=== PATIENT | male | born 1940 | race Two or more races ===

== ENCOUNTER → 2017-08-12 | Outpatient (CLI) | payer OTHER ==
[~2017-08-12] MED LIST: ALLO300T2 PO; SIMV-8 PO
[2017-08-12 10:39] LABS: Basophils # (auto) 0.1 uL; Basophils % (auto) 0.7 % (0.0-2.0); Eosinophils # (auto) 0.1 uL; Eosinophils % (auto) 1.7 % (0.0-7.0); Hematocrit 51.3 % (41.0-53.0); Hemoglobin 17.6 g/dL (13.5-17.5); Lymphocytes # (auto) 2.5 uL; Lymphocytes % (auto) 32.7 % (10.0-50.0); Mean Corpuscular Hemoglobin 32.3 pg (28.0-32.0); Mean Corpuscular Hgb Conc. 34.4 g/dL (32.0-36.0); Mean Corpuscular Volume 93.9 fL (80.0-100.0); Monocytes # (auto) 0.5 uL; Neutrophils # (auto) 4.5 uL; Neutrophils % (auto) 57.9 % (37.0-80.0); Nucleated Red Blood Cells % 0.2 %; Platelet Count (auto) 266 10^3/uL (140-450); Red Blood Cells 5.46 10^6/uL (4.5-5.90); Red Cell Distribution Width 13.2 % (11.8-14.3); White Blood Cell 7.8 10^3/uL (4.4-10.8)
[2017-08-12 10:52] LABS: Urine Bacteria NONE SEEN /hpf (None Seen); Urine Blood Negative /uL (Negative); Urine Mucus FEW (None Seen); Urine Specific Gravity 1.012 (1.001-1.035); Urine WBC 1 /hpf (0 - 3)
[2017-08-12 11:59] LABS: Albumin 3.6 g/dL (3.4-5.0); BUN/Creatinine Ratio 10.7; Bilirubin, Total 1.1 mg/dL (0.2-1.0); Calcium 8.6 mg/dL (8.5-10.1); Potassium 3.8 mmol/L (3.5-5.1); Total Protein 7.4 g/dL (6.4-8.2); Uric Acid 8.2 mg/dL (3.5-7.2)
== END | disposition home or self-care (01) ==
LOC: LAB 10:19
PROVIDERS: ATTEND Family Medicine
DX: M10.9 Gout, unspecified (principal); E78.5 Hyperlipidemia, unspecified
CPT/HCPCS: 36415; 80053; 80061; 81001; 82306; 82607; 83036; 84443; 84550; 85025

== ENCOUNTER → 2018-03-12 | Outpatient (CLI) | payer OTHER ==
[2018-03-12 08:47] LABS: Albumin 3.5 g/dL (3.4-5.0); BUN/Creatinine Ratio 13.4; Bilirubin, Total 0.9 mg/dL (0.2-1.0); Calcium 8.5 mg/dL (8.5-10.1); Potassium 3.8 mmol/L (3.5-5.1); Total Protein 7.3 g/dL (6.4-8.2)
== END | disposition home or self-care (01) ==
LOC: LAB 07:43
PROVIDERS: ATTEND Family Medicine
DX: M10.9 Gout, unspecified (principal); E03.9 Hypothyroidism, unspecified; E78.5 Hyperlipidemia, unspecified
CPT/HCPCS: 36415; 80053; 80061; 84443; 84550

== ENCOUNTER 2018-10-21 09:00 | Inpatient (IN) | payer OTHER ==
[~2018-10-21] VITALS: Ht 182.9 cm; Wt 92.8 kg
[2018-10-21] MEDS ORDERED: ADENOSINE 6 MG/2 ML INJ IV ONE ×2 (09:26→09:30)
[2018-10-21] MEDS ORDERED: AMIODARONE HCL 900 MG in DEXTROSE 500 ML IV SCH ×3 (09:41→16:04)
[2018-10-21] MEDS ORDERED: AMIODARONE HCL 150 MG in D5W 5% 100 ML IV ONE (09:45)
[2018-10-21 09:46] LABS: Basophils # (auto) 0.1 uL; Basophils % (auto) 0.7 % (0.0-2.0); Eosinophils # (auto) 0.2 uL; Eosinophils % (auto) 1.8 % (0.0-7.0); Hematocrit 48.8 % (41.0-53.0); Hemoglobin 16.4 g/dL (13.5-17.5); Lymphocytes # (auto) 2.5 uL; Mean Corpuscular Hemoglobin 32.4 pg (28.0-32.0); Mean Corpuscular Hgb Conc. 33.5 g/dL (32.0-36.0); Mean Corpuscular Volume 96.6 fL (80.0-100.0); Monocytes # (auto) 0.7 uL; Monocytes % (auto) 7.9 % (0.0-12.0); Neutrophils % (auto) 63.6 % (37.0-80.0); Nucleated Red Blood Cells % 0.1 %; Platelet Count (auto) 217 10^3/uL (140-450); Red Blood Cells 5.06 10^6/uL (4.5-5.90); Red Cell Distribution Width 13.6 % (11.8-14.3); White Blood Cell 9.4 10^3/uL (4.4-10.8)
[2018-10-21] MEDS ORDERED: SODIUM CHLORIDE 0.9% 1,000 ML IV ONE ×2 (09:46)
[2018-10-21 09:52] LABS: INR 1.02 (0.9-1.15); Partial Thromboplastin Time 27.1 sec (23.78-33.04); Prothrombin Time 10.9 sec (9.27-12.13)
[2018-10-21 09:56] LABS: Albumin 3.7 g/dL (3.4-5.0); Calcium 8.3 mg/dL (8.5-10.1); Magnesium 2.3 mg/dL (1.6-2.6); Potassium 4.1 mmol/L (3.5-5.1)
[2018-10-21] MEDS ORDERED: ASPirin 81 mg TAB PO ONE (10:00)
[2018-10-21 10:02] LABS: BUN/Creatinine Ratio 17.4; Bilirubin, Total 0.8 mg/dL (0.2-1.0); Total Protein 7.1 g/dL (6.4-8.2)
[2018-10-21] MEDS ORDERED: IOHEXOL 350 MG/ML 100ML IJ ONE ×2 (11:20→12:38)
[2018-10-21] MEDS ORDERED: NITROGLYCERIN 0.4 MG SL TAB SL PRN (11:45)
[2018-10-21] MEDS ORDERED: MORPHINE SULF INJ 2 MG/ML SYRINGE 1ML IV PRN ×2 (11:45)
[2018-10-21] MEDS ORDERED: ACETAMINOPHEN 500 MG TAB PO PRN (11:45)
[2018-10-21] MEDS ORDERED: ONDANSETRON HCL 4 MG/2 ML VIAL IV PRN (11:45)
[2018-10-21] MEDS ORDERED: HYDROcodone-ACET 5/325MG TAB PO PRN (11:45)
[2018-10-21] MEDS ORDERED: METOPROLOL TARTRATE 25 MG TAB PO ONE ×2 (12:30→14:00)
[2018-10-21] MEDS ORDERED: DIGOXIN (250MCG/ML) 2 ML AMPULE IV ONE (16:15)
[2018-10-21 16:42] LABS: Urine Bacteria NONE SEEN /hpf (None Seen); Urine Blood Negative /uL (Negative); Urine Specific Gravity 1.035 (1.001-1.035); Urine WBC 6 /hpf (0 - 3)
[2018-10-21] MEDS ORDERED: ENOXAPARIN SOD 80 MG/0.8ML SYRINGE SC SCH (22:00)
[2018-10-21] MEDS ORDERED: METOPROLOL TARTRATE 25 MG TAB PO SCH (22:00)
[2018-10-21] MEDS: ATORVASTATIN 20 MG TAB PO SCH (22:37)
[2018-10-22 06:33] LABS: Basophils # (auto) 0 uL; Basophils % (auto) 0.3 % (0.0-2.0); Eosinophils # (auto) 0.1 uL; Eosinophils % (auto) 0.7 % (0.0-7.0); Hematocrit 45.5 % (41.0-53.0); Hemoglobin 15.5 g/dL (13.5-17.5); Lymphocytes % (auto) 21.3 % (10.0-50.0); Mean Corpuscular Hemoglobin 32.9 pg (28.0-32.0); Mean Corpuscular Hgb Conc. 34.1 g/dL (32.0-36.0); Mean Corpuscular Volume 96.5 fL (80.0-100.0); Monocytes # (auto) 0.8 uL; Neutrophils # (auto) 6.5 uL; Neutrophils % (auto) 69.7 % (37.0-80.0); Nucleated Red Blood Cells % 0.1 %; Platelet Count (auto) 186 10^3/uL (140-450); Red Blood Cells 4.71 10^6/uL (4.5-5.90); Red Cell Distribution Width 13.3 % (11.8-14.3); White Blood Cell 9.4 10^3/uL (4.4-10.8)
[2018-10-22 06:41] LABS: BUN/Creatinine Ratio 17.3; Calcium 8.2 mg/dL (8.5-10.1); Potassium 4.4 mmol/L (3.5-5.1)
[2018-10-22 07:04] LABS: INR 1.06 (0.9-1.15); Partial Thromboplastin Time 29.8 sec (23.78-33.04); Prothrombin Time 11.3 sec (9.27-12.13)
[2018-10-22] MEDS ORDERED: METOPROLOL TARTRATE 25 MG TAB PO SCH (10:00)
[2018-10-22] MEDS ORDERED: FUROSEMIDE 20 MG TAB PO SCH (10:00)
[2018-10-22] MEDS: ENALAPRIL MALEATE 2.5 MG TAB PO SCH (10:27)
[2018-10-22] MEDS: PANTOPRAZOLE 40 MG/10 ML VIAL INJ IV SCH (10:27)
[2018-10-22] MEDS: DIGOXIN (250MCG/ML) 2 ML AMPULE IV SCH (10:27)
[2018-10-22] MEDS: ASPirin-EC 81 mg tab PO SCH (10:27)
[2018-10-22] MEDS: CARVEDILOL 3.125 MG TAB PO SCH ×2 (10:27→21:45)
[2018-10-22 11:15] VITALS: BP 138/76
[2018-10-22] MEDS ORDERED: ASPI325T4 PO (13:23)
[2018-10-22] MEDS ORDERED: cefTRIAXone 1GM/50ML D5W 50 ML IV ONE (14:30)
[2018-10-22] MEDS ORDERED: AZITHROMYCIN 500MG/ 250ML 250 ML IV ONE (14:30)
[2018-10-22] MEDS ORDERED: FUROSEMIDE 20 MG/2 ML VIAL IV ONE (14:30)
[2018-10-22] MEDS ORDERED: IPRATROPIUM BROM 0.5 MG/2.5ML INH SOL NEB PRN (14:30)
[2018-10-22] MEDS ORDERED: guaiFENesin-DM 100/10mg/5ml SYR PO PRN (14:30)
[2018-10-22] MEDS ORDERED: ALBUTEROL SULF 2.5 MG/0.5ML(0.5%) NEB SOLN NEB PRN (14:30)
[2018-10-22 16:25] VITALS: BP 120/72
--- NOTE | 2018-10-22 19:00 | NUR ---
Opening Shift Note Assumed care of patient, awake and alert. No S/S of distress/SOB or pain. Instructed on POC and to call for assist PRN, will continue to monitor for changes Q1hr and PRN.
--- NOTE | 2018-10-22 20:28 | NUR ---
Respiratory note: ASSESSMENT FOR PRN MED NEB TX, NO RESPIRATORY DISTRESS NOTED. HR 80, SPO2 97% ON 4L NC, RR 18, BS CLEAR. PT PRESENTING NO RESPIRATORY DISTRESS AT THIS TIME. WILL CONTINUE TO MONITOR.
--- NOTE | 2018-10-22 20:35 | NUR ---
IV removal IV to right hand was noted to be infiltrated upon assessment.IV was DC'd with sterile technique, catheter fully intact. Pressure dressing applied to site. Patient tolerated procedure well.
[2018-10-22] MEDS: ATORVASTATIN 20 MG TAB PO SCH (21:45)
[2018-10-22 22:00] VITALS: BP 130/73
[2018-10-23 00:57] VITALS: BP 122/69
[2018-10-23 04:54] VITALS: BP 139/74
[2018-10-23 06:16] LABS: Basophils # (auto) 0 uL; Basophils % (auto) 0.4 % (0.0-2.0); Eosinophils # (auto) 0.1 uL; Hematocrit 43.6 % (41.0-53.0); Hemoglobin 14.7 g/dL (13.5-17.5); Lymphocytes # (auto) 1.6 uL; Lymphocytes % (auto) 18.5 % (10.0-50.0); Mean Corpuscular Hemoglobin 32.6 pg (28.0-32.0); Mean Corpuscular Hgb Conc. 33.8 g/dL (32.0-36.0); Mean Corpuscular Volume 96.5 fL (80.0-100.0); Monocytes # (auto) 0.7 uL; Neutrophils # (auto) 6.1 uL; Neutrophils % (auto) 72.1 % (37.0-80.0); Nucleated Red Blood Cells % 0.1 %; Platelet Count (auto) 171 10^3/uL (140-450); Red Blood Cells 4.52 10^6/uL (4.5-5.90); Red Cell Distribution Width 13.1 % (11.8-14.3); White Blood Cell 8.5 10^3/uL (4.4-10.8)
[2018-10-23 06:36] LABS: Albumin 3.3 g/dL (3.4-5.0); Calcium 8.2 mg/dL (8.5-10.1); Magnesium 2.2 mg/dL (1.6-2.6)
[2018-10-23 06:42] LABS: BUN/Creatinine Ratio 20.4; Bilirubin, Total 0.8 mg/dL (0.2-1.0); Total Protein 6.3 g/dL (6.4-8.2)
--- NOTE | 2018-10-23 07:05 | NUR ---
Respiratory note: ROUTINE PRN MN TX CHECK. HR 74, RR 18, POX 98% ON 2L/M NASAL CANNULA, BREATH SOUNDS ARE CLEAR/DIMINISHED. NO SOB OR DISTRESS NOTED. PT WAS NOTIFY TO HAVE RT PAGE FOR MN TX.
--- NOTE | 2018-10-23 07:28 | NUR ---
PATIENT SLEEPING, EFFORTLESS BREATHING NOTED ON ROOM AIR. EASILY AROUSABLE UPON VERBAL INTERACTION. IV PRESENT TO LEFT HAND #20. BED IN LOWEST POSITION, CALL LIGHT WITHIN REACH. WILL CONTINUE TO MONITOR.
[2018-10-23 08:11] VITALS: BP 126/76
[2018-10-23] MEDS: cefTRIAXone 1GM/50ML D5W 50 ML IV SCH (09:41)
[2018-10-23] MEDS: DIGOXIN (250MCG/ML) 2 ML AMPULE IV SCH (09:49)
[2018-10-23] MEDS: ASPirin-EC 81 mg tab PO SCH (09:51)
[2018-10-23] MEDS: ENALAPRIL MALEATE 2.5 MG TAB PO SCH (09:51)
[2018-10-23] MEDS: FUROSEMIDE 40 MG/4 ML VIAL IV SCH (09:52)
[2018-10-23] MEDS: ENOXAPARIN SOD 40 MG/0.4 ML SYRINGE SC SCH (09:52)
[2018-10-23] MEDS: PANTOPRAZOLE 40 MG/10 ML VIAL INJ IV SCH (09:52)
[2018-10-23] MEDS: CARVEDILOL 3.125 MG TAB PO SCH ×2 (09:52→21:47)
[2018-10-23] MEDS: AZITHROMYCIN 500MG/ 250ML 250 ML IV SCH (10:20)
--- NOTE | 2018-10-23 10:50 | NUR ---
COMMUNICATED TO DR. MENA ABOUT THE ELEVATED TROPONIN LAB: 0.051 MD STATED WILL CALL DR. BURLESON FOR FURTHER PLAN.
[2018-10-23 11:47] VITALS: BP 132/64
--- NOTE | 2018-10-23 12:50 | NUR ---
PATIENT TOLERATING LUNCH DIET WELL. DENIES ANY DISCOMFORT AT MOMENT. CALL LIGHT WITHIN REACH.
[2018-10-23 16:19] VITALS: BP 123/69
[2018-10-23] MEDS: ATORVASTATIN 20 MG TAB PO SCH (21:47)
[2018-10-23 22:00] VITALS: BP 141/80
[2018-10-24 05:00] VITALS: BP 129/72
[2018-10-24 06:15] LABS: Potassium 4.1 mmol/L (3.5-5.1)
[2018-10-24 06:24] LABS: BUN/Creatinine Ratio 20.5; Calcium 8.2 mg/dL (8.5-10.1)
--- NOTE | 2018-10-24 07:12 | NUR ---
PATIENT SLEEPING AT MOMENT. NO S/S OF DISTRESS AT MOMENT. EFFORTLESS BREATHING ON 2LPM NASAL CANULA. BED IN LOWEST POSITION, WHEELS LOCKED, CALL LIGHT WITHIN REACH.
--- NOTE | 2018-10-24 07:20 | NUR ---
CLOSING NOTE Care has been endorsed to day shift nurse.
[2018-10-24 08:00] VITALS: BP 134/79
--- NOTE | 2018-10-24 08:44 | NUR ---
PT REPORTS THAT HE WALKS FINE AND DOES NOT NEED P.T.
[2018-10-24] MEDS: cefTRIAXone 1GM/50ML D5W 50 ML IV SCH (09:08)
[2018-10-24] MEDS: DIGOXIN (250MCG/ML) 2 ML AMPULE IV SCH (09:12)
[2018-10-24] MEDS: FUROSEMIDE 40 MG/4 ML VIAL IV SCH (09:13)
[2018-10-24] MEDS: ASPirin-EC 81 mg tab PO SCH (09:13)
[2018-10-24] MEDS: CARVEDILOL 3.125 MG TAB PO SCH ×2 (09:13→21:37)
[2018-10-24] MEDS: PANTOPRAZOLE 40 MG/10 ML VIAL INJ IV SCH (09:13)
[2018-10-24] MEDS: ENALAPRIL MALEATE 2.5 MG TAB PO SCH (09:14)
[2018-10-24] MEDS: ENOXAPARIN SOD 40 MG/0.4 ML SYRINGE SC SCH (09:14)
[2018-10-24] MEDS: AZITHROMYCIN 500MG/ 250ML 250 ML IV SCH (10:18)
--- NOTE | 2018-10-24 10:30 | NUR ---
URINE OUTPUT OF 1000ML. PT REPORTS COMFORT, EFFORTLESS BREATHING ON ROOM AIR. CALL LIGHT WITHIN REACH.
--- NOTE | 2018-10-24 11:05 | NUR ---
Respiratory note: ASSESSED PATIENT FOR PRN BREATHING TX, PATIENT WAS AWAKE AND ALERT. NO RESPIRATORY DISTRESS OR SHORTNESS OF BREATH NOTED AT THIS TIME. PATIENT WAS ON ROOM AIR SPO2 93%, HR 75, RR 17. PATIENT IS AWARE TO HAVE RT PAGED IF BREATHING TX IS NEEDED. WILL CONTINUE TO MONITOR PATIENT.
--- NOTE | 2018-10-24 11:41 | NUR ---
Nutrition Assessment Notes please see attached link for complete assessment Est. Needs BW [id number] kcal (23-25 kcal/kgBW), 95-104 gms pro (1.0-1.1 gms/kgBW). Will continue to monitor pertinent labs and reassess nutrient need prn. Addendum: 10/24/18 at [address] Amended: Links added.
[2018-10-24 11:52] VITALS: BP 108/63
--- NOTE | 2018-10-24 12:06 | NUR ---
Respiratory note: ASSESSED PATIENT FOR PRN TX. PATIENT ASKED IF SHE COULD HAVE ONE. PATIENT RECEIVED BREATHING TX W/O ANY ADVERSE REACTIONS. HR 86, RR 18, SPO2 95% ON ROOM AIR. PATIENT IS AWARE TO HAVE RT PAGED IF BREATHING TX IS NEEDED. WILL CONTINUE TO MONITOR PATIENT. Addendum: 10/24/18 at 1558 by JARRETT ABRAHAM, RT RT ERROR/ INCORRECT PATIENT CARE PROVIDER MISTAKE.
--- NOTE | 2018-10-24 13:11 | NUR ---
URINE OUTPUT OF 900ML. PATIENT TOLERATING DIET WELL. DENIES ANY DISCOMFORT AT MOMENT. EFFORTLESS BREATHING ON ROOM AIR. CALL LIGHT WITHIN REACH.
[2018-10-24 15:59] VITALS: BP 129/81
--- NOTE | 2018-10-24 16:35 | NUR ---
DR. NIEVES AT BEDSIDE, DISCUSSING PLAN OF CARE WITH PATIENT.
--- NOTE | 2018-10-24 19:30 | NUR ---
Opening Shift Note Assumed care of patient, awake and alert. The patient is sitting up in bed eating his dinner. No S/S of distress/SOB or pain. Instructed on POC and to call for assist PRN, will continue to monitor for changes Q1hr and PRN.
--- NOTE | 2018-10-24 20:21 | NUR ---
Respiratory note: ASSESSED PT FOR PRN MED NEB AT THIS TIME, PT DENIES SOB AT THIS TIME, NO RESP DISTRESS NOTED, NO TX INDICATED, PULSE OX 95% ON RA, HR 88, RR 20, BILATERAL BS CLEAR.
[2018-10-24] MEDS: ATORVASTATIN 20 MG TAB PO SCH (21:38)
[2018-10-24 22:00] VITALS: BP 131/74
[2018-10-25 05:00] VITALS: BP 150/80
--- NOTE | 2018-10-25 07:07 | NUR ---
Closing shift note Care has been endorsed to the day shift RN.
--- NOTE | 2018-10-25 07:15 | NUR ---
Opening Shift Note Received report from night nurse. Assumed care of patient, awake and alert. No S/S of distress/SOB or pain. For C stephan and patient is aware of it. Instructed on POC and to call for assist PRN, will continue to monitor for changes Q1hr and PRN.
[2018-10-25 08:00] VITALS: BP 149/84
[2018-10-25 09:00] VITALS: BP 149/84
[2018-10-25] MEDS: cefTRIAXone 1GM/50ML D5W 50 ML IV SCH (09:39)
[2018-10-25] MEDS: ASPirin-EC 81 mg tab PO SCH (09:40)
[2018-10-25] MEDS: ENALAPRIL MALEATE 2.5 MG TAB PO SCH (09:40)
[2018-10-25] MEDS: ENOXAPARIN SOD 40 MG/0.4 ML SYRINGE SC SCH (09:40)
[2018-10-25] MEDS: FUROSEMIDE 40 MG/4 ML VIAL IV SCH (09:40)
[2018-10-25] MEDS: PANTOPRAZOLE 40 MG/10 ML VIAL INJ IV SCH (09:40)
[2018-10-25] MEDS: CARVEDILOL 3.125 MG TAB PO SCH ×2 (09:41→22:00)
[2018-10-25] MEDS: DIGOXIN (250MCG/ML) 2 ML AMPULE IV SCH (09:42)
--- NOTE | 2018-10-25 10:40 | NUR ---
Respiratory note: ASSESSED PT FOR PRN TX, PT WAS ASLEEP, NO RESP DISTRESS NOTED. HR 74, RR 18, SPO2 93% ON ROOM AIR. BS ARE CLEAR AND DIMINISHED.
[2018-10-25] MEDS: AZITHROMYCIN 500MG/ 250ML 250 ML IV SCH (10:47)
[2018-10-25 13:00] VITALS: BP 116/68
[2018-10-25] MEDS ORDERED: PNEUMOCOCCAL VACC POLYS 25 MCG/0.5 ML VIAL IM ONE (14:30)
[2018-10-25] MEDS ORDERED: INFLUENZA QUAD 2018-2019 0.5 ML SYRG IM ONE (14:30)
[2018-10-25 17:00] VITALS: BP 132/75
[2018-10-25 22:00] VITALS: BP 136/73
[2018-10-25] MEDS: ATORVASTATIN 20 MG TAB PO SCH (22:00)
[2018-10-26] VITALS (7 sets, daily range): BP systolic 124–148; BP diastolic 61–88
--- NOTE | 2018-10-26 01:02 | NUR ---
PT SEEN SLEEPING IN BED ON RA, NO RESP DISTRESS NOTED, BS CLEAR AND DIMINISHED, RR 16. PRN NEB TX NOT INDICATED AT THIS TIME.
[2018-10-26 05:37] LABS: Basophils # (auto) 0 uL; Basophils % (auto) 0.5 % (0.0-2.0); Eosinophils # (auto) 0.2 uL; Eosinophils % (auto) 2.5 % (0.0-7.0); Hematocrit 47.6 % (41.0-53.0); Hemoglobin 16.6 g/dL (13.5-17.5); Lymphocytes # (auto) 1.8 uL; Lymphocytes % (auto) 18.9 % (10.0-50.0); Mean Corpuscular Hemoglobin 32.9 pg (28.0-32.0); Mean Corpuscular Hgb Conc. 34.8 g/dL (32.0-36.0); Mean Corpuscular Volume 94.5 fL (80.0-100.0); Monocytes % (auto) 10.2 % (0.0-12.0); Neutrophils # (auto) 6.5 uL; Neutrophils % (auto) 67.9 % (37.0-80.0); Nucleated Red Blood Cells % 0.2 %; Platelet Count (auto) 228 10^3/uL (140-450); Red Blood Cells 5.04 10^6/uL (4.5-5.90); Red Cell Distribution Width 13.1 % (11.8-14.3); White Blood Cell 9.5 10^3/uL (4.4-10.8)
[2018-10-26 05:50] LABS: INR 0.99 (0.9-1.15); Prothrombin Time 10.6 sec (9.27-12.13)
--- NOTE | 2018-10-26 07:15 | NUR ---
CLOSING SHIFT NOTE The patient is currently stable. Will endorse care to day shift RN.
--- NOTE | 2018-10-26 07:45 | NUR ---
Opening Shift Note Assumed care of patient, patient sleeping. No S/S of distress/SOB or pain. Will continue to monitor for changes Q1hr and PRN. Bed in lowest locked position, call light within reach.
[2018-10-26] MEDS: ENOXAPARIN SOD 40 MG/0.4 ML SYRINGE SC SCH (09:33)
[2018-10-26] MEDS: ASPirin-EC 81 mg tab PO SCH (09:33)
[2018-10-26] MEDS: AZITHROMYCIN 500MG/ 250ML 250 ML IV SCH (09:34)
[2018-10-26] MEDS: cefTRIAXone 1GM/50ML D5W 50 ML IV SCH (09:34)
[2018-10-26] MEDS: ENALAPRIL MALEATE 2.5 MG TAB PO SCH (09:35)
[2018-10-26] MEDS: DIGOXIN (250MCG/ML) 2 ML AMPULE IV SCH (09:35)
[2018-10-26] MEDS: PANTOPRAZOLE 40 MG/10 ML VIAL INJ IV SCH (09:35)
[2018-10-26] MEDS: FUROSEMIDE 40 MG/4 ML VIAL IV SCH (09:35)
[2018-10-26] MEDS: CARVEDILOL 3.125 MG TAB PO SCH ×2 (09:36→21:30)
--- NOTE | 2018-10-26 12:21 | NUR ---
OFF UNIT PATIENT TRANSFERRED TO [facility] [employer] VIA BED. NO S/S OF DISTRESS NOTED AT TIME OF DEPARTURE.
[2018-10-26] MEDS ORDERED: MORPHINE SULF INJ 2 MG/ML SYRINGE 1ML IV PRN (12:45)
[2018-10-26] MEDS ORDERED: HYDROcodone-ACET 5/325MG TAB PO PRN (12:45)
[2018-10-26] MEDS ORDERED: LIDOCAINE 2%HCL (LOCAL ANESTH.) INJ 20ML MDV ONE (13:06)
[2018-10-26] MEDS ORDERED: IOHEXOL 350 MG/ML 100ML IJ ONE (13:44)
[2018-10-26] MEDS ORDERED: fentaNYL CITRATE 100 MCG/2 ML VL ONE (13:46)
[2018-10-26] MEDS ORDERED: MIDAZOLAM HCL 1MG/1ML-2 ML VIAL ONE (13:46)
[2018-10-26] MEDS ORDERED: ANGIOMAX 250 MG VIAL IV ONE (13:46)
[2018-10-26] MEDS ORDERED: SODIUM CHL 0.9% 0 ML ONE (13:46)
[2018-10-26] MEDS ORDERED: IODIXANOL 320MG/ML 100ML BTL IV ONE (13:50)
--- NOTE | 2018-10-26 15:00 | NUR ---
ON UNIT PATIENT TRANSFERRED BACK TO UNIT VIA BED. NO S/S OF DISTRESS NOTED AT TIME OF ARRIVAL. RIGHT GROIN DRESSING CDI, NO S/S OF BLEEDING. RIGHT PEDAL PULSES PALPABLE. WILL CONTINUE TO MONITOR.
--- NOTE | 2018-10-26 18:42 | NUR ---
END OF SHIFT PATIENT RESTING IN BED. NO S/S OF DISTRESS. INSTRUCTED PATIENT TO CALL PRN. BED IN LOWEST LOCKED POSITION, CALL LIGHT WITHIN REACH. ENDORSED CARE TO ALYX CALLAHAN.
--- NOTE | 2018-10-26 19:35 | NUR ---
OPENING SHIFT NOTE RECEIVED REPORT FROM DAYSHIFT RN. PATIENT SITTING ON SIDE OF BED EATING A SANDWICH. NO S/S OF DISTRESS OR SOB. NO PAIN NOTED OR REPORTED. PATIENT A/O X4, AMBULATORY. DRESSING TO RIGHT GROIN IS CLEAN, DRY, AND INTACT. NO S/S OF BLEEDING OR HEMATOMA. UPDATED PATIENT ON POC, VERBALIZED UNDERSTANDING. BED LOCKED IN LOW POSITION, CALL LIGHT WITHIN REACH. WILL CONTINUE TO MONITOR PATIENT Q1HR AND PRN.
[2018-10-26] MEDS: ATORVASTATIN 20 MG TAB PO SCH (21:29)
[2018-10-27 04:42] VITALS: BP 117/65
[2018-10-27 07:37] LABS: Calcium 8.8 mg/dL (8.5-10.1); Magnesium 2.5 mg/dL (1.6-2.6)
[2018-10-27 07:41] LABS: BUN/Creatinine Ratio 24.8
[2018-10-27] MEDS: cefTRIAXone 1GM/50ML D5W 50 ML IV SCH (08:44)
[2018-10-27 09:00] VITALS: BP 100/71
[2018-10-27] MEDS: AZITHROMYCIN 500MG/ 250ML 250 ML IV SCH (09:30)
[2018-10-27] MEDS: ENOXAPARIN SOD 40 MG/0.4 ML SYRINGE SC SCH (09:30)
[2018-10-27] MEDS: ASPirin-EC 81 mg tab PO SCH (09:30)
[2018-10-27] MEDS: PANTOPRAZOLE 40 MG/10 ML VIAL INJ IV SCH (09:31)
[2018-10-27] MEDS: FUROSEMIDE 40 MG/4 ML VIAL IV SCH (09:34)
[2018-10-27] MEDS: CARVEDILOL 3.125 MG TAB PO SCH ×2 (09:34→21:23)
[2018-10-27] MEDS: DIGOXIN (250MCG/ML) 2 ML AMPULE IV SCH (09:34)
[2018-10-27] MEDS: ENALAPRIL MALEATE 2.5 MG TAB PO SCH (09:35)
--- NOTE | 2018-10-27 10:17 | NUR ---
IV removal IV DC'd from left wrist with clean sterile technique, catheter fully intact. Pressure dressing applied to site. Patient tolerated well.
--- NOTE | 2018-10-27 11:10 | NUR ---
AT BEDSIDE DR. SOLER AT BEDSIDE DISCUSSING POC WITH PATIENT.
[2018-10-27 13:00] VITALS: BP 121/62
--- NOTE | 2018-10-27 15:45 | NUR ---
assessment Patient is a 78 year old male who is alert and oriented. Patients cognitive abilities are intact. Prior to admission patient lived home alone and functioned independently. Patient informed me he is able to care for his own ADLs. Per patient he will return home to his prior living arrangements post discharge and family will transport him home. Patients PCP is Dr Tamara Wan. Patient feels safe returning home on discharge. Patient has no post discharge needs at this time. I informed patient he has a right to speak to a drug abuse social worker regarding all care. I informed patient he has a right to participate in any and all discharge planning. Patient is aware of visiting hours on the hospital floor. I informed patient he has a right to privacy. Patient does not have a POA and advanced directive. I have offered patient information on POA and advanced directives. I informed the patient the advantages and benefits of having an Advanced Directive. Patient verbalized understanding and agreed to discharge plan. Addendum: 10/27/18 at 1548 by Anitha ARMANDO Amended: Links added.
[2018-10-27 17:00] VITALS: BP 134/76
--- NOTE | 2018-10-27 19:45 | NUR ---
OPENING SHIFT NOTE RECEIVED REPORT FROM DAYSHIFT RN. PATIENT RESTING COMFORTABLY IN BED WATCHING TELEVISION. NO S/S OF DISTRESS OR SOB. NO PAIN NOTED OR REPORTED. PATIENT A/O X4, AMBULATORY. UPDATED PATIENT ON POC, VERBALIZED UNDERSTANDING. BED LOCKED IN LOW POSITION, CALL LIGHT WITHIN REACH. WILL CONTINUE TO MONITOR PATIENT Q1HR AND PRN.
[2018-10-27] MEDS: ATORVASTATIN 20 MG TAB PO SCH (21:23)
[2018-10-27 22:00] VITALS: BP 128/68
[2018-10-28 04:59] VITALS: BP 117/63
--- NOTE | 2018-10-28 07:45 | NUR ---
Opening Shift Note Assumed care of patient, awake and alert and oriented x4. No S/S of distress/SOB or pain. Instructed on POC and to call for assist PRN, will continue to monitor for changes.
[2018-10-28 08:30] VITALS: BP 121/69
[2018-10-28] MEDS: cefTRIAXone 1GM/50ML D5W 50 ML IV SCH (09:56)
[2018-10-28] MEDS: PANTOPRAZOLE 40 MG/10 ML VIAL INJ IV SCH (09:56)
[2018-10-28] MEDS: ENOXAPARIN SOD 40 MG/0.4 ML SYRINGE SC SCH (09:57)
[2018-10-28] MEDS: CARVEDILOL 3.125 MG TAB PO SCH ×2 (10:10→22:00)
[2018-10-28] MEDS: ENALAPRIL MALEATE 2.5 MG TAB PO SCH (10:10)
[2018-10-28] MEDS: ASPirin-EC 81 mg tab PO SCH (10:10)
[2018-10-28] MEDS: DIGOXIN 0.125 MG TAB PO SCH (10:10)
[2018-10-28] MEDS: FUROSEMIDE 40 MG/4 ML VIAL IV SCH (10:11)
--- NOTE | 2018-10-28 11:18 | NUR ---
Nutrition Follow-up Notes Wt.: 92.4 kg Pt was sleeping with no family by bedside. per pt records pt s/p LHC yesterday. pt with no distress noted per nursing. pt is currently on cardiac diet with adequate PO of 100% x 4 per RN doc Est. Needs BW [id number] kcal (23-25 kcal/kgBW), 95-104 gms pro (1.0-1.1 gms/kgBW). Will continue to monitor pertinent labs and reassess nutrient need prn. Labs: BUN 28 H, rest lab wnl Skin: Real scale 20, low risk, skin intact per clin asst. GI: Pt had 1 BM today per clin asst. PES: Altered nutrition related lab values r/t current/chronic medical condition aeb elev BUN, mild hypoalb, hypocalcemia Will continue to monitor PO intake, skin status, pertinent labs and weight trend. F/u in 3 to 5 days. Rec.: 1.) consider prostat 1 packet bid if alb trends dwn. 2) continue current plan of care
[2018-10-28] MEDS: AZITHROMYCIN 500MG/ 250ML 250 ML IV SCH (11:41)
[2018-10-28 12:30] VITALS: BP 138/71
--- NOTE | 2018-10-28 17:04 | NUR ---
IV removal IV DC'd on LH with clean sterile technique, catheter fully intact. Pressure dressing applied to site. Patient tolerated well. NOTE:
--- NOTE | 2018-10-28 17:05 | NUR ---
IV insertion IV access obtained, via clean sterile technique by inserting 20 gauge catheter at LFA after 1 attempt(s). IV secured properly. No trauma to site. Patient tolerated well.
[2018-10-28 17:22] VITALS: BP 133/67
--- NOTE | 2018-10-28 18:55 | NUR ---
Garima WISDOM also made aware ALL blood thinners to be held per Dr Fox's communication order.
--- NOTE | 2018-10-28 18:55 | NUR ---
Patient care and report handed off to Garima WISDOM made aware pt to be NPO after midnight for AICD procedure with DR Fox on 10/29/18.
--- NOTE | 2018-10-28 19:01 | NUR ---
Opening Shift Note Assumed care of patient from day shift ALYX Reyes. Pt is awake and alert and oriented x4. No S/S of distress/SOB or pain. Safety maintained with bed rails upx2, locked and in lowest position with call saba within reach. Instructed on POC and to call for assist PRN, will continue to monitor for changes Q1hr and PRN.
[2018-10-28 22:00] VITALS: BP 131/69
[2018-10-28] MEDS: ATORVASTATIN 20 MG TAB PO SCH (22:00)
[2018-10-29 05:25] VITALS: BP 129/71
[2018-10-29 06:16] LABS: Basophils # (auto) 0.1 uL; Basophils % (auto) 0.9 % (0.0-2.0); Eosinophils # (auto) 0.3 uL; Eosinophils % (auto) 4.3 % (0.0-7.0); Hemoglobin 16.3 g/dL (13.5-17.5); Lymphocytes % (auto) 28.5 % (10.0-50.0); Mean Corpuscular Hemoglobin 32.7 pg (28.0-32.0); Mean Corpuscular Hgb Conc. 34.8 g/dL (32.0-36.0); Mean Corpuscular Volume 94.1 fL (80.0-100.0); Monocytes # (auto) 0.8 uL; Monocytes % (auto) 11.4 % (0.0-12.0); Neutrophils # (auto) 3.8 uL; Neutrophils % (auto) 54.9 % (37.0-80.0); Platelet Count (auto) 241 10^3/uL (140-450); Red Blood Cells 4.99 10^6/uL (4.5-5.90); Red Cell Distribution Width 13.1 % (11.8-14.3); White Blood Cell 6.9 10^3/uL (4.4-10.8)
[2018-10-29 06:25] LABS: Partial Thromboplastin Time 28.5 sec (23.78-33.04); Prothrombin Time 10.7 sec (9.27-12.13)
[2018-10-29 06:30] LABS: Potassium 4.2 mmol/L (3.5-5.1)
[2018-10-29 06:40] LABS: Albumin 3.3 g/dL (3.4-5.0); BUN/Creatinine Ratio 26.2; Bilirubin, Total 0.4 mg/dL (0.2-1.0); Calcium 8.6 mg/dL (8.5-10.1); Total Protein 6.9 g/dL (6.4-8.2)
--- NOTE | 2018-10-29 07:33 | NUR ---
Opening Shift Note Assumed care of patient, awake and alert. No S/S of distress/SOB or pain. Instructed on POC and to call for assistance PRN. Bed at lowest position and call light within reach. Will continue to monitor for changes Q1hr and PRN.
[2018-10-29 08:00] VITALS: BP 135/73
[2018-10-29 09:00] VITALS: BP 135/73
[2018-10-29] MEDS: AZITHROMYCIN 500MG/ 250ML 250 ML IV SCH (09:53)
[2018-10-29] MEDS: cefTRIAXone 1GM/50ML D5W 50 ML IV SCH (09:53)
[2018-10-29] MEDS: FUROSEMIDE 40 MG/4 ML VIAL IV SCH (09:54)
[2018-10-29] MEDS: PANTOPRAZOLE 40 MG/10 ML VIAL INJ IV SCH (09:54)
[2018-10-29] MEDS: DIGOXIN 0.125 MG TAB PO SCH (09:55)
[2018-10-29] MEDS: CARVEDILOL 3.125 MG TAB PO SCH ×2 (09:55→21:49)
[2018-10-29] MEDS: ENALAPRIL MALEATE 2.5 MG TAB PO SCH (09:55)
[2018-10-29] MEDS: ENOXAPARIN SOD 40 MG/0.4 ML SYRINGE SC SCH (09:56)
[2018-10-29] MEDS: ASPirin-EC 81 mg tab PO SCH (09:56)
[2018-10-29] MEDS ORDERED: HYDROcodone-ACET 5/325MG TAB PO PRN (12:45)
[2018-10-29] MEDS ORDERED: guaiFENesin-DM 100/10mg/5ml SYR PO PRN (12:45)
--- NOTE | 2018-10-29 12:56 | NUR ---
Patient is down at laboratory miller
[2018-10-29] MEDS ORDERED: VANCOMYCIN 1GM/250ML 250 ML IV SCH ×3 (13:15→22:00)
[2018-10-29] MEDS ORDERED: ceFAZolin 1GM/50ML 50 ML IV ONE (13:15)
[2018-10-29] MEDS ORDERED: LIDOCAINE 2%HCL (LOCAL ANESTH.) INJ 20ML MDV ONE ×3 (14:42→14:48)
[2018-10-29] MEDS ORDERED: IOHEXOL 300 MG/ML 75ml BOTTLE ONE (14:43)
[2018-10-29] MEDS ORDERED: MIDAZOLAM HCL 1MG/1ML-2 ML VIAL ONE (14:43)
[2018-10-29] MEDS ORDERED: fentaNYL CITRATE 100 MCG/2 ML VL ONE (14:43)
[2018-10-29] MEDS ORDERED: VANCOMYCIN HCL 1000 MG VL ONE (14:45)
[2018-10-29] MEDS ORDERED: VANCOMYCIN 1GM/250ML 250 ML IV ONE (14:45)
--- NOTE | 2018-10-29 18:00 | NUR ---
VS: bp 147/72, RR 18, HR 73, Sp02 97%
--- NOTE | 2018-10-29 19:10 | NUR ---
Opening Shift Note Assumed care of patient from day shift RN Chel. Pt is awake and alert and oriented x4. No S/S of distress/SOB or pain. Safety maintained with bed rails upx2, locked and in lowest position with call saba within reach. Instructed on POC and to call for assist PRN, will continue to monitor for changes Q1hr and PRN.
--- NOTE | 2018-10-29 19:27 | NUR ---
Patient is comfortably resting in bed. No c/o pain/SOB noted/stated. Bed at lowest position and call light within reach. Care Endorsed to NOC RN
[2018-10-29 21:48] VITALS: BP 136/66
[2018-10-29] MEDS: ATORVASTATIN 20 MG TAB PO SCH (21:49)
[2018-10-29] MEDS: MORPHINE SULF INJ 2 MG/ML SYRINGE 1ML IV PRN (23:25)
[2018-10-30 04:54] VITALS: BP 134/69
[2018-10-30] MEDS: MORPHINE SULF INJ 2 MG/ML SYRINGE 1ML IV PRN (06:29)
[2018-10-30 06:52] LABS: Basophils # (auto) 0 uL; Basophils % (auto) 0.4 % (0.0-2.0); Eosinophils # (auto) 0.3 uL; Eosinophils % (auto) 3.3 % (0.0-7.0); Hematocrit 46.4 % (41.0-53.0); Hemoglobin 16.2 g/dL (13.5-17.5); Lymphocytes # (auto) 1.3 uL; Lymphocytes % (auto) 14.6 % (10.0-50.0); Mean Corpuscular Volume 94.3 fL (80.0-100.0); Monocytes # (auto) 0.8 uL; Monocytes % (auto) 9.6 % (0.0-12.0); Neutrophils # (auto) 6.2 uL; Neutrophils % (auto) 72.1 % (37.0-80.0); Nucleated Red Blood Cells % 0.1 %; Platelet Count (auto) 231 10^3/uL (140-450); Red Blood Cells 4.92 10^6/uL (4.5-5.90); White Blood Cell 8.6 10^3/uL (4.4-10.8)
[2018-10-30 07:07] LABS: Calcium 8.5 mg/dL (8.5-10.1)
[2018-10-30 07:10] LABS: BUN/Creatinine Ratio 28.6
--- NOTE | 2018-10-30 07:35 | NUR ---
Opening Shift Note Assumed care of patient, awake and alert. No S/S of distress/SOB or pain. Instructed on POC and to call for assist PRN. Bed at lowest position and call light within reach. will continue to monitor for changes Q1hr and PRN.
[2018-10-30 08:00] VITALS: BP 145/70
[2018-10-30 08:54] VITALS: BP 145/70
[2018-10-30] MEDS: ENOXAPARIN SOD 40 MG/0.4 ML SYRINGE SC SCH (10:00)
[2018-10-30] MEDS: ASPirin-EC 81 mg tab PO SCH (10:00)
[2018-10-30] MEDS: AZITHROMYCIN 500MG/ 250ML 250 ML IV SCH (10:13)
[2018-10-30] MEDS: cefTRIAXone 1GM/50ML D5W 50 ML IV SCH (10:13)
[2018-10-30] MEDS: ENALAPRIL MALEATE 2.5 MG TAB PO SCH (10:14)
[2018-10-30] MEDS: CARVEDILOL 3.125 MG TAB PO SCH (10:14)
[2018-10-30] MEDS: FUROSEMIDE 40 MG/4 ML VIAL IV SCH (10:15)
[2018-10-30] MEDS: DIGOXIN 0.125 MG TAB PO SCH (10:15)
[2018-10-30] MEDS ORDERED: DOXY-216 PO (12:10)
[2018-10-30] MEDS ORDERED: ENA2.5T PO (12:10)
[2018-10-30] MEDS ORDERED: FURO40TA PO (12:10)
[2018-10-30] MEDS ORDERED: APIX5TAB PO ×2 (12:10→12:35)
[2018-10-30] MEDS ORDERED: CAR3125T PO (12:10)
[2018-10-30] MEDS ORDERED: DIGO0.1229 PO (12:10)
[2018-10-30] MEDS ORDERED: PANT40TA2 PO (12:19)
--- NOTE | 2018-10-30 12:31 | NUR ---
re-assessment Per ss consult patients daughter at bedside and wants to know about options for HHC. I went to bedside and patients daughter had left. Per patient he is independent at home and does not need PT. I have provided patient with resources for private pay caregivers if he should need them in the future. Addendum: 10/30/18 at 1234 by Anitha Mays Amended: Links added.
[2018-10-30 13:00] VITALS: BP 125/73
[2018-10-30 14:31] VITALS: BP 125/73
--- NOTE | 2018-10-30 15:51 | NUR ---
Discharge instructions given as ordered. Encourage to follow up with PMD as instructed. All questions and concerns addressed. Patient verbalized understanding. IV removed with catheter intact, pressure dressing applied. Telemetry unit returned to ICU. Patient taken to vehicle via wheelchair with all personal belongings, accompanied by staff and family member. No distress noted at time of departure.
== END 2018-10-30 15:50 | disposition home or self-care (01) | DRG 222 ==
LOC: ER 09:06 → OVERFLOW 11:49 → TELE-WESTW 10-22 11:39
PROVIDERS: ADMIT Nurse Practitioner Acute Care; ATTEND Internal Medicine
PROC: 4A023N7 Measurement of Cardiac Sampling and Pressure, Left Heart, Percutaneous Approach (ICD-10-PCS; principal; 2018-10-26)
PROC: B2111ZZ Fluoroscopy of Multiple Coronary Arteries using Low Osmolar Contrast (ICD-10-PCS; 2018-10-26)
PROC: B2151ZZ Fluoroscopy of Left Heart using Low Osmolar Contrast (ICD-10-PCS; 2018-10-26)
PROC: 0JH609Z Insertion of Cardiac Resynchronization Defibrillator Pulse Generator into Chest Subcutaneous Tissue and Fascia, Open Approach (ICD-10-PCS; 2018-10-29)
PROC: 02HK3KZ Insertion of Defibrillator Lead into Right Ventricle, Percutaneous Approach (ICD-10-PCS; 2018-10-29)
PROC: 02HL3KZ Insertion of Defibrillator Lead into Left Ventricle, Percutaneous Approach (ICD-10-PCS; 2018-10-29)
PROC: 02H63KZ Insertion of Defibrillator Lead into Right Atrium, Percutaneous Approach (ICD-10-PCS; 2018-10-29)
DX: I50.43 Acute on chronic combined systolic (congestive) and diastolic (congestive) heart failure (principal); J96.00 Acute respiratory failure, unspecified whether with hypoxia or hypercapnia; J18.9 Pneumonia, unspecified organism; I48.4 Atypical atrial flutter; D68.59 Other primary thrombophilia; I42.0 Dilated cardiomyopathy; I47.1 Supraventricular tachycardia; E78.5 Hyperlipidemia, unspecified; M19.90 Unspecified osteoarthritis, unspecified site; M10.9 Gout, unspecified; E87.8 Other disorders of electrolyte and fluid balance, not elsewhere classified; I08.1 Rheumatic disorders of both mitral and tricuspid valves; I45.9 Conduction disorder, unspecified; I48.91 Unspecified atrial fibrillation; K21.9 Gastro-esophageal reflux disease without esophagitis
CPT/HCPCS: 33249; 36415; 71045; 71046; 71275; 80048; 80053; 80061; 80162; 81001; 82962; 83735; 83880; 84132; 84443; 84484; 85025; 85610; 85730; 86141; 86850; 86900; 86901; 90674; 93005; 93306; 93458; 94640; 99152; A6257; C9113; G0378; J0153; J0690; J0696; J2250; J7060; Q9967

== ENCOUNTER → 2018-12-17 | Outpatient (CLI) | payer OTHER ==
[~2018-12-17] MED LIST changes: +APIX5TAB PO; +CAR3125T PO; +DIGO0.1229 PO; +DOXY-216 PO; +ENA2.5T PO; +FURO40TA PO; +PANT40TA2 PO
== END | disposition home or self-care (01) ==
LOC: Rad HDHVI 09:57
PROVIDERS: ATTEND Internal Medicine Cardiovascular Disease
DX: I08.1 Rheumatic disorders of both mitral and tricuspid valves (principal); I42.0 Dilated cardiomyopathy; I50.33 Acute on chronic diastolic (congestive) heart failure
CPT/HCPCS: 93306

== ENCOUNTER → 2019-01-15 | Outpatient (CLI) | payer OTHER ==
[2019-01-15 07:26] LABS: Basophils # (auto) 0.1 uL; Basophils % (auto) 1.1 % (0.0-2.0); Eosinophils # (auto) 0.3 uL; Eosinophils % (auto) 3.9 % (0.0-7.0); Hematocrit 44.3 % (41.0-53.0); Hemoglobin 15.6 g/dL (13.5-17.5); Lymphocytes # (auto) 2.8 uL; Lymphocytes % (auto) 31.7 % (10.0-50.0); Mean Corpuscular Hemoglobin 32.6 pg (28.0-32.0); Mean Corpuscular Hgb Conc. 35.3 g/dL (32.0-36.0); Mean Corpuscular Volume 92.6 fL (80.0-100.0); Monocytes # (auto) 0.7 uL; Monocytes % (auto) 7.4 % (0.0-12.0); Neutrophils % (auto) 55.9 % (37.0-80.0); Nucleated Red Blood Cells % 0.1 %; Platelet Count (auto) 254 10^3/uL (140-450); Red Blood Cells 4.79 10^6/uL (4.5-5.90); Red Cell Distribution Width 14.8 % (11.8-14.3); White Blood Cell 8.9 10^3/uL (4.4-10.8)
[2019-01-15 07:51] LABS: Potassium 3.9 mmol/L (3.5-5.1)
[2019-01-15 07:58] LABS: Albumin 3.6 g/dL (3.4-5.0); BUN/Creatinine Ratio 10.7; Bilirubin, Total 0.6 mg/dL (0.2-1.0); Calcium 9.2 mg/dL (8.5-10.1); Total Protein 7.6 g/dL (6.4-8.2)
== END | disposition home or self-care (01) ==
LOC: LAB 07:02
PROVIDERS: ATTEND Family Medicine
DX: I48.91 Unspecified atrial fibrillation (principal); E78.2 Mixed hyperlipidemia; I50.41 Acute combined systolic (congestive) and diastolic (congestive) heart failure; Z87.39 Personal history of other diseases of the musculoskeletal system and connective tissue
CPT/HCPCS: 36415; 80053; 80061; 84550; 85025

== ENCOUNTER → 2020-05-10 | Outpatient (CLI) | payer OTHER ==
[~2020-05-10] MED LIST changes: +AMLO5TAB15 PO; -DIGO0.1229 PO; +DIGO0.1238 PO; -DOXY-216 PO; +DOXY-286 PO; -ENA2.5T PO; +ENAL2.5T11 PO; +FURO1TAB31 PO; -FURO40TA PO
[2020-05-10 13:49] LABS: Basophils # (auto) 0.1 10 ^3/uL (0-0.2); Eosinophils # (auto) 0.2 10 ^3/uL (0-0.8); Lymphocytes # (auto) 3.2 10 ^3/uL (0.4-5.4); Monocytes # (auto) 0.5 10 ^3/uL (0-1.3); White Blood Cell 7.9 10^3/uL (4.4-10.8)
[2020-05-10 13:51] LABS: Basophils % (auto) 0.8 % (0.0-2.0); Eosinophils % (auto) 1.9 % (0.0-7.0); Hematocrit 51.7 % (41.0-53.0); Mean Corpuscular Hemoglobin 33.3 pg (28.0-32.0); Mean Corpuscular Hgb Conc. 34.8 g/dL (32.0-36.0); Mean Corpuscular Volume 95.7 fL (80.0-100.0); Monocytes % (auto) 6.5 % (0.0-12.0); Neutrophils % (auto) 50.8 % (37.0-80.0); Nucleated Red Blood Cells % 0.3 %; Platelet Count (auto) 222 10^3/uL (140-450); Red Cell Distribution Width 14.5 % (11.8-14.3)
[2020-05-10 14:09] LABS: Urine Bacteria NONE SEEN /hpf (None Seen); Urine Blood Negative /uL (Negative); Urine Mucus FEW (None Seen); Urine Specific Gravity 1.022 (1.001-1.035); Urine WBC 2 /hpf (0 - 3)
[2020-05-10 14:24] LABS: Albumin 3.7 g/dL (3.4-5.0); Calcium 8.7 mg/dL (8.5-10.1); Potassium 3.8 mmol/L (3.5-5.1); Uric Acid 11.8 mg/dL (3.5-7.2)
[2020-05-10 14:29] LABS: BUN/Creatinine Ratio 13.6; Total Protein 7.5 g/dL (6.4-8.2)
[2020-05-10 14:35] LABS: Folate (Folic Acid) 18.88 ng/mL (5.38-24); Prostate Specific Antigen 2.12 ng/mL (0.0-4.0)
== END | disposition home or self-care (01) ==
LOC: LAB 13:24
PROVIDERS: ATTEND Nurse Practitioner
DX: Z12.5 Encounter for screening for malignant neoplasm of prostate (principal); I11.0 Hypertensive heart disease with heart failure; I50.42 Chronic combined systolic (congestive) and diastolic (congestive) heart failure; M10.9 Gout, unspecified
CPT/HCPCS: 36415; 80053; 80061; 81001; 82607; 82746; 83036; 84153; 84443; 84550; 85025

== ENCOUNTER → 2020-10-18 | Outpatient (CLI) | payer OTHER ==
[~2020-10-18] MED LIST changes: +AMLO-489 PO; -AMLO5TAB15 PO; -DIGO0.1238 PO; +DIGO1TAB48 PO
== END | disposition home or self-care (01) ==
LOC: Rad HDHVI 08:54
PROVIDERS: ATTEND Internal Medicine Cardiovascular Disease
DX: I50.43 Acute on chronic combined systolic (congestive) and diastolic (congestive) heart failure (principal); R06.02 Shortness of breath
CPT/HCPCS: 93306

== ENCOUNTER → 2020-10-19 | Outpatient (CLI) | payer OTHER ==
[~2020-10-19] VITALS: Ht 182.9 cm; Wt 98.9 kg
[~2020-10-19] MED LIST changes: +ADENOSINE 83 MG in GIVE UN-DILUTED 0 ML IV ONE; +ADENOSINE 90 MG/30 ML INJ IV ONE
== END | disposition home or self-care (01) ==
LOC: Rad HDHVI 12:58
PROVIDERS: ATTEND Internal Medicine Cardiovascular Disease
DX: I50.43 Acute on chronic combined systolic (congestive) and diastolic (congestive) heart failure (principal); I51.7 Cardiomegaly; I25.5 Ischemic cardiomyopathy; I42.0 Dilated cardiomyopathy; R06.02 Shortness of breath; Z95.810 Presence of automatic (implantable) cardiac defibrillator
CPT/HCPCS: 78452; 93005; 96374; 96375; A9500; J0153

== ENCOUNTER → 2020-10-25 | Outpatient (CLI) | payer OTHER ==
[~2020-10-25] MED LIST changes: -ADENOSINE 83 MG in GIVE UN-DILUTED 0 ML IV ONE; -ADENOSINE 90 MG/30 ML INJ IV ONE
[2020-10-25 14:25] LABS: Basophils # (auto) 0 10 ^3/uL (0-0.2); Basophils % (auto) 0.7 % (0.0-2.0); Eosinophils # (auto) 0.2 10 ^3/uL (0-0.8); Eosinophils % (auto) 2.3 % (0.0-7.0); Hematocrit 45.9 % (41.0-53.0); Hemoglobin 16.1 g/dL (13.5-17.5); Lymphocytes # (auto) 2.7 10 ^3/uL (0.4-5.4); Lymphocytes % (auto) 38.1 % (10.0-50.0); Mean Corpuscular Hemoglobin 33.8 pg (28.0-32.0); Mean Corpuscular Volume 96.6 fL (80.0-100.0); Monocytes # (auto) 0.5 10 ^3/uL (0-1.3); Monocytes % (auto) 6.6 % (0.0-12.0); Neutrophils # (auto) 3.7 10 ^3/uL (1.6-8.6); Neutrophils % (auto) 52.3 % (37.0-80.0); Nucleated Red Blood Cells % 0.4 %; Platelet Count (auto) 235 10^3/uL (140-450); Red Blood Cells 4.76 10^6/uL (4.5-5.90); Red Cell Distribution Width 13.4 % (11.8-14.3); White Blood Cell 7.1 10^3/uL (4.4-10.8)
[2020-10-25 14:31] LABS: Urine Bacteria NONE SEEN /hpf (None Seen); Urine Blood Negative /uL (Negative); Urine Hyaline Cast FEW /lpf (0 - 2); Urine Mucus FEW (None Seen); Urine Specific Gravity 1.016 (1.001-1.035); Urine WBC 1 /hpf (0 - 3)
[2020-10-25 15:10] LABS: Albumin 3.9 g/dL (3.4-5.0); Calcium 9.3 mg/dL (8.5-10.1); Potassium 4.1 mmol/L (3.5-5.1); Uric Acid 9.3 mg/dL (3.5-7.2)
[2020-10-25 15:14] LABS: BUN/Creatinine Ratio 12.4; Bilirubin, Total 0.8 mg/dL (0.2-1.0); Total Protein 7.3 g/dL (6.4-8.2)
== END | disposition home or self-care (01) ==
LOC: LAB 14:10
PROVIDERS: ATTEND Nurse Practitioner
DX: I10 Essential (primary) hypertension (principal); E78.5 Hyperlipidemia, unspecified
CPT/HCPCS: 36415; 80053; 80061; 81001; 84153; 84443; 84550; 85025

== ENCOUNTER → 2023-05-13 | Outpatient (CLI) | payer OTHER ==
[~2023-05-13] MED LIST changes: -AMLO-489 PO; +AMLO1TAB22 PO; -SIMV-8 PO; +SIMV20TA20 PO
[2023-05-13 13:12] LABS: Basophils # (auto) 0 10 ^3/uL (0-0.2); Basophils % (auto) 0.6 % (0.0-2.0); Eosinophils # (auto) 0.2 10 ^3/uL (0-0.8); Eosinophils % (auto) 2.4 % (0.0-7.0); Hematocrit 49.2 % (41.0-53.0); Hemoglobin 16.3 g/dL (13.5-17.5); Lymphocytes # (auto) 2.3 10 ^3/uL (0.4-5.4); Lymphocytes % (auto) 35.8 % (10.0-50.0); Mean Corpuscular Hemoglobin 30.7 pg (28.0-32.0); Mean Corpuscular Hgb Conc. 33.2 g/dL (32.0-36.0); Mean Corpuscular Volume 92.5 fL (80.0-100.0); Monocytes # (auto) 0.2 10 ^3/uL (0-1.3); Monocytes % (auto) 3.8 % (0.0-12.0); Neutrophils # (auto) 3.6 10 ^3/uL (1.6-8.6); Neutrophils % (auto) 57.4 % (37.0-80.0); Nucleated Red Blood Cells % 0.1 %; Red Blood Cells 5.32 10^6/uL (4.5-5.90); Red Cell Distribution Width 14.3 % (11.8-14.3); White Blood Cell 6.3 10^3/uL (4.4-10.8)
[2023-05-13 13:28] LABS: Urine Bacteria NONE SEEN /hpf (None Seen); Urine Blood Negative /uL (Negative); Urine Clarity Clear (Clear); Urine Color Yellow (Yellow); Urine Mucus FEW (None Seen); Urine Protein, UAD TRACE (Negative); Urine Specific Gravity 1.024 (1.001-1.035); Urine WBC 23 /hpf (0 - 3); Urine pH 5.5 (5.0-8.0)
[2023-05-13 14:55] LABS: Alanine Aminotransferase 20 U/L (7-40); Albumin 4.4 g/dL (3.2-4.8); Alkaline Phosphatase 79 U/L (46-116); Anion Gap 7 (5-15); Aspartate Aminotransferase 22 U/L (13-40); BUN/Creatinine Ratio 8.4 (10.0-20.0); Blood Urea Nitrogen 9 mg/dL (9-23); Calcium 9.3 mg/dL (8.5-10.1); Carbon Dioxide 26 mmol/L (20-30); Chloride 110 mmol/L (98-107); Cholesterol 139 mg/dL (< 200); Glucose 132 mg/dL (74-106); HDL Cholesterol 39 mg/dL (40-59); LDL Cholesterol 82 mg/dL (< 100); Potassium 4.1 mmol/L (3.5-5.1); Sodium 143 mmol/L (136-145); Triglycerides 178 mg/dL (< 150)
[2023-05-13 14:56] LABS: Bilirubin, Total 0.4 mg/dL (0.2-1.0)
[2023-05-14 08:06] LABS: PSA Free 0.8 ng/mL; Prostate Specific Antigen 5.3 ng/mL (0.0-4.0)
== END | disposition home or self-care (01) ==
LOC: LAB 12:50
PROVIDERS: ATTEND Nurse Practitioner
DX: I10 Essential (primary) hypertension (principal); E78.5 Hyperlipidemia, unspecified; R73.9 Hyperglycemia, unspecified
CPT/HCPCS: 36415; 80053; 80061; 81001; 83036; 84153; 84154; 84443; 85025

== ENCOUNTER → 2024-04-30 | Outpatient (CLI) | payer OTHER ==
[~2024-04-30] MED LIST changes: -CAR3125T PO; +CARV-214 PO; +ENAL1TAB43 PO; -ENAL2.5T11 PO
[2024-04-30 13:35] LABS: Basophils # (auto) 0 10 ^3/uL (0-0.2); Basophils % (auto) 0.7 % (0.0-2.0); Eosinophils # (auto) 0.1 10 ^3/uL (0-0.8); Eosinophils % (auto) 2.9 % (0.0-7.0); Hematocrit 48.5 % (41.0-53.0); Hemoglobin 16.5 g/dL (13.5-17.5); Lymphocytes # (auto) 2.4 10 ^3/uL (0.4-5.4); Lymphocytes % (auto) 48.9 % (10.0-50.0); Mean Corpuscular Hemoglobin 32.2 pg (28.0-32.0); Mean Corpuscular Volume 94.7 fL (80.0-100.0); Monocytes # (auto) 0.3 10 ^3/uL (0-1.3); Monocytes % (auto) 5.9 % (0.0-12.0); Neutrophils % (auto) 41.6 % (37.0-80.0); Nucleated Red Blood Cells % 0.2 %; Platelet Count (auto) 182 10^3/uL (140-450); Red Blood Cells 5.13 10^6/uL (4.5-5.90); Red Cell Distribution Width 14.2 % (11.8-14.3); White Blood Cell 4.9 10^3/uL (4.4-10.8)
[2024-04-30 13:48] LABS: Alanine Aminotransferase 16 U/L (7-40); Albumin 4.3 g/dL (3.2-4.8); Alkaline Phosphatase 74 U/L (46-116); Anion Gap 9 (5-15); Aspartate Aminotransferase 15 U/L (13-40); BUN/Creatinine Ratio 12.1 (10.0-20.0); Bilirubin, Total 0.8 mg/dL (0.2-1.0); Blood Urea Nitrogen 12 mg/dL (9-23); Calcium 9.3 mg/dL (8.7-10.4); Carbon Dioxide 25 mmol/L (20-31); Chloride 110 mmol/L (98-107); Cholesterol 136 mg/dL (< 200); Glucose 110 mg/dL (74-106); HDL Cholesterol 46 mg/dL (40-59); LDL Cholesterol 73 mg/dL (< 100); Potassium 3.7 mmol/L (3.5-5.1); Sodium 144 mmol/L (136-145); Total Protein 6.8 g/dL (5.7-8.2); Triglycerides 186 mg/dL (< 150)
[2024-04-30 14:55] LABS: Urine Bacteria FEW /hpf (None Seen); Urine Blood Negative /uL (Negative); Urine Clarity Turbid (Clear); Urine Color Yellow (Yellow); Urine Mucus FEW (None Seen); Urine Protein, UAD TRACE (Negative); Urine Specific Gravity 1.028 (1.001-1.035); Urine Urobilinogen Normal (Negative); Urine WBC 2 /hpf (0 - 3); Urine pH 5.5 (5.0-9.0)
== END | disposition home or self-care (01) ==
LOC: LAB 12:54
PROVIDERS: ATTEND Nurse Practitioner
DX: I10 Essential (primary) hypertension (principal); E78.5 Hyperlipidemia, unspecified; R73.9 Hyperglycemia, unspecified
CPT/HCPCS: 36415; 80053; 80061; 81001; 83036; 84443; 85025